=== PATIENT | male | born 1925 | race Caucasian/White ===

== ENCOUNTER → 2016-12-11 | Outpatient (CLI) | payer MEDICARE, OTHER ==
[~2016-12-11] MED LIST: ATORVASTATIN CA20 MG PO; BETAPACE 80MG T80 MG PO; CLONIDINE 0.2M0.2 MG PO; CLOPIDOGREL75 MG PO; GLIPIZIDE 5MG TA5 MG PO; IMDUR 60MG. TAB60 MG PO; LISINOPRIL40 MG PO; NITROSTAT0.4 MG SL; PRILOSEC20 MG PO; XARELTO15 MG PO
[2016-12-11 12:46] LABS: BUN 19 mg/dL (7-18)
[2016-12-11 12:51] LABS: GFR (ESTIMATED) 48 ML/MIN (>60)
[2016-12-12 09:42] LABS: Creatinine, Urine 194.8 mg/dL (Not Estab.)
== END ==
LOC: LAB 11:18
PROVIDERS: Internal Medicine
DX: E11.9 Type 2 diabetes mellitus without complications (principal); I10 Essential (primary) hypertension